=== PATIENT | female | born 2000 | race African-American/Black ===

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

== ENCOUNTER 2023-08-26 13:18 | Emergency (ER) | payer MEDICAID, OTHER ==
[~2023-08-26] VITALS: Ht 167.6 cm; Wt 91.0 kg
[2023-08-26 13:40] VITALS: O2SAT 96
[2023-08-26] MEDS ORDERED: ACETAMINOPHEN 325MG TABLET PO STA (14:36)
[2023-08-26] MEDS ORDERED: IBUP-2029 PO (15:14)
[2023-08-26 15:43] VITALS: BP 125/80; PULSE 95; RESP 18; TEMP 97.7
== END 2023-08-26 15:44 | disposition home or self-care (01) ==
LOC: ER 13:18
DX: M25.571 Pain in right ankle and joints of right foot (principal); Z98.890 Other specified postprocedural states; Z86.59 Personal history of other mental and behavioral disorders; W01.0XXA Fall on same level from slipping, tripping and stumbling without subsequent striking against object, initial encounter; Y93.89 Activity, other specified; Y92.89 Other specified places as the place of occurrence of the external cause; Y99.8 Other external cause status
CPT/HCPCS: 73610; 99283